=== PATIENT | female | born 1945 | race Caucasian/White ===

== ENCOUNTER 2017-08-09 18:12 | Inpatient (IN) | payer OTHER, MEDICARE ==
[~2017-08-09] VITALS: Ht 149.9 cm; Wt 95.0 kg
[2017-08-09 18:16] VITALS: BP 214/95; PULSE 87; RESP 18; TEMP 98.1; O2SAT 97
[2017-08-09] MEDS ORDERED: ALPR.5 PO (18:40)
[2017-08-09] MEDS ORDERED: OMEP20TA93 PO (18:40)
[2017-08-09] MEDS ORDERED: CLOB0.055 TOPICAL (18:40)
[2017-08-09] MEDS ORDERED: BUSP1TAB PO (18:40)
[2017-08-09] MEDS ORDERED: METF1000 PO (18:40)
[2017-08-09] MEDS ORDERED: AMLO5TAB2 PO (18:40)
[2017-08-09] MEDS ORDERED: ALLO300T2 PO (18:40)
[2017-08-09] MEDS ORDERED: HYDR-3799 PO (18:40)
[2017-08-09] MEDS ORDERED: PRAV20TA2 PO (18:40)
[2017-08-09] MEDS ORDERED: VALS1TAB65 PO (18:40)
[2017-08-09] MEDS ORDERED: PIOG30TA4 PO (18:40)
[2017-08-09] MEDS ORDERED: CARV3.12 PO (18:40)
[2017-08-09] MEDS ORDERED: GLIM4TAB PO (18:40)
[2017-08-09] MEDS ORDERED: TORS20TA PO (18:40)
[2017-08-09] MEDS ORDERED: CHOL5000 PO (18:41)
[2017-08-09] MEDS ORDERED: ASPI1TAB57 PO (18:41)
[2017-08-09] MEDS ORDERED: VITA10002 PO (18:41)
[2017-08-09 18:42] VITALS: BP 198/88; PULSE 84; RESP 19; O2SAT 94
[2017-08-09] MEDS ORDERED: cloNIDine HCL 0.2 MG TAB PO ONE (18:45)
[2017-08-09] MEDS ORDERED: FLUT1INH INH (18:46)
[2017-08-09 18:52] VITALS: BP 198/88; PULSE 82; RESP 19; O2SAT 96
--- NOTE | 2017-08-09 19:08 | PD ---
HPI Chief Complaint: Dizziness Time Seen by Provider: 18:29 Travel History International Travel<30 days: No Contact w/Intl Traveler<30days: No Traveled to known affect area: No History of Present Illness HPI 72-year-old female with a history of atrial fibrillation, hypertension, anxiety , diabetes mellitus, hyperlipidemia presents emergency department complaining of "dizzy spells", high blood pressure, and anxiety for approximately 2 months. States that she has also had episodes of "seeing things" out of her left eye. Patient describes a crescent-shaped black area that lasts for approximately 1 hour and then goes away on its own. At this time patient does have dizziness. Patient states that she has had 2 episodes today and she was concerned so she decided come to the emergency department today. Patient states she was evaluated by primary care physician, Dr. Mayfield, who ordered a carotid ultrasound to evaluate for possible carotid stenosis. She was also placed on alprazolam but this has stopped helping her. They occur when she is driving or performing daily activities. Patient denies chest pain, shortness of breath, abdominal pain, leg pain. States he also has bilateral 'cold sensation' to her anterior shins. PFSH Past Medical History Asthma: Yes Atrial Fibrillation: Yes Anxiety: Yes High Cholesterol: Yes COPD: Yes Coronary Artery Disease: Yes Diabetes: Yes Patient Takes Glucophage: Yes Hypertension: Yes Tetanus Vaccination: Unknown Influenza Vaccination: Yes Tubal Ligation: Yes Past Surgical History Appendectomy: Yes Social History Alcohol Use: No Tobacco Use: No Substance Use: No Allergies-Medications (Allergen,Severity, Reaction): Coded Allergies: hydrocodone (Verified Allergy, Unknown, 08/09/17) Reported Meds & Prescriptions Reported Meds & Active Scripts Active Reported Breo Ellipta Inh (Fluticasone/Vilanterol) 100-25 Mcg/Act Inh 1 Puff INH DAILY Use daily at the same time. Vitamin D3 (Cholecalciferol) 5,000 Unit Cap 5,000 Units PO DAILY Aspirin 81 (Aspirin) 81 Mg Tabdr 81 Mg PO DAILY Vitamin B-12 (Cyanocobalamin) 1,000 Mcg Tab 1,000 Mcg PO DAILY Xanax (Alprazolam) 0.5 Mg Tab 0.5 Mg PO Q8H PRN Buspirone (Buspirone HCl) 7.5 Mg Tab 7.5 Mg PO BID Valsartan 160 Mg Tab 160 Mg PO DAILY Torsemide 20 Mg Tab 20 Mg PO DAILY Pravastatin 20 Mg Tab 20 Mg PO DAILY Pioglitazone (Pioglitazone HCl) 30 Mg Tab 30 Mg PO DAILY Omeprazole 20 Mg Tab 20 Mg PO DAILY Metformin (Metformin HCl) 1,000 Mg Tab 1,000 Mg PO BIDPC Hydralazine HCl 25 Mg Tablet 25 Mg PO TID Glimepiride 4 Mg Tab 4 Mg PO BIDAC Clobetasol Topical (Clobetasol Propionate) 0.05% Cream 1 Applic TOPICAL BID Carvedilol 3.125 Mg Tab 3.125 Mg PO BID Amlodipine (Amlodipine Besylate) 5 Mg Tab 5 Mg PO DAILY Allopurinol 300 Mg Tab 300 Mg PO DAILY Review of Systems Except as stated in HPI: all other systems reviewed are Neg Physical Exam Narrative GENERAL: Well developed, well-nourished in no apparent distress, resting comfortably in bed SKIN: Focused skin assessment warm/dry. HEAD: Atraumatic. Normocephalic. EYES: Pupils equal and round. No scleral icterus. No injection or drainage. PERRLA. No obvious deficits with peripheral vision ENT: No nasal bleeding or discharge. Mucous membranes pink and moist. NECK: Trachea midline. No JVD. CARDIOVASCULAR: Regular rate and rhythm. No murmur appreciated. RESPIRATORY: No accessory muscle use. Clear to auscultation. Breath sounds equal bilaterally. GASTROINTESTINAL: Abdomen soft, non-tender, nondistended. Hepatic and splenic margins not palpable. MUSCULOSKELETAL: No obvious deformities. No clubbing. No cyanosis. No edema. NEUROLOGICAL: Awake and alert. No obvious cranial nerve deficits. Motor grossly within normal limits. Normal speech. PSYCHIATRIC: Appropriate mood and affect; insight and judgment normal. Data Data Last Documented VS Vital Signs Date Time Temp Pulse Resp B/P (MAP) Pulse Ox O2 Delivery O2 Flow Rate FiO2 08/09/17 19:41 73 16 172/74 (106) 95 Room Air 08/09/17 18:16 98.1 Orders Orders Electrocardiogram (08/09/17 18:44) Prothrombin Time / Inr (Pt) (08/09/17 18:44) Act Partial Throm Time (Ptt) (08/09/17 18:44) Complete Blood Count With Diff (08/09/17 18:44) Comprehensive Metabolic Panel (08/09/17 18:44) Troponin I (08/09/17 18:44) Urinalysis - C+S If Indicated (08/09/17 18:44) Ct Brain W/O Iv Contrast(Rout) (08/09/17 18:44) Chest, Single Ap (08/09/17 18:44) Ecg Monitoring (08/09/17 18:44) Iv Access Insert/Monitor (08/09/17 18:44) Oximetry (08/09/17 18:44) Blood Glucose (08/09/17 18:44) Clonidine (Catapres) (08/09/17 18:45) Clonidine (Catapres) (08/09/17 20:00) Admit Order (Ed Use Only) (08/09/17 20:36) Labs Laboratory Tests Test 08/09/17 18:55 White Blood Count 8.9 TH/MM3 Red Blood Count 4.48 MIL/MM3 Hemoglobin 12.9 GM/DL Hematocrit 39.0 % Mean Corpuscular Volume 87.1 FL Mean Corpuscular Hemoglobin 28.7 PG Mean Corpuscular Hemoglobin Concent 33.0 % Red Cell Distribution Width 16.5 % Platelet Count 273 TH/MM3 Mean Platelet Volume 10.6 FL Neutrophils (%) (Auto) 68.9 % Lymphocytes (%) (Auto) 19.9 % Monocytes (%) (Auto) 8.7 % Eosinophils (%) (Auto) 1.4 % Basophils (%) (Auto) 1.1 % Neutrophils # (Auto) 6.1 TH/MM3 Lymphocytes # (Auto) 1.8 TH/MM3 Monocytes # (Auto) 0.8 TH/MM3 Eosinophils # (Auto) 0.1 TH/MM3 Basophils # (Auto) 0.1 TH/MM3 CBC Comment DIFF FINAL Differential Comment Prothrombin Time 10.2 SEC Prothromb Time International Ratio 1.0 RATIO Activated Partial Thromboplast Time 26.3 SEC Blood Urea Nitrogen 25 MG/DL Creatinine 1.43 MG/DL Random Glucose 208 MG/DL Total Protein 7.8 GM/DL Albumin 3.8 GM/DL Calcium Level 9.5 MG/DL Alkaline Phosphatase 111 U/L Aspartate Amino Transf (AST/SGOT) 13 U/L Alanine Aminotransferase (ALT/SGPT) 17 U/L Total Bilirubin 0.2 MG/DL Sodium Level 140 MEQ/L Potassium Level 3.9 MEQ/L Chloride Level 105 MEQ/L Carbon Dioxide Level 27.1 MEQ/L Anion Gap 8 MEQ/L Estimat Glomerular Filtration Rate 36 ML/MIN Troponin I LESS THAN 0.02 NG/ML MDM Medical Decision Making Medical Screen Exam Complete: Yes Emergency Medical Condition: Yes Differential Diagnosis TIA, anxiety, migraine Narrative Course 72-year-old female with a history of atrial fibrillation, hypertension, anxiety , diabetes mellitus, hyperlipidemia presents emergency department complaining of "dizzy spells", high blood pressure, and anxiety for approximately 2 months. States that she has also had episodes of "seeing things" out of her left eye. Patient describes a crescent-shaped black area that lasts for approximately 1 hour and then goes away on its own. At this time patient does have dizziness. Patient states that she has had 2 episodes today and she was concerned so she decided come to the emergency department today. Patient states she was evaluated by primary care physician, Dr. Mayfield, who ordered a carotid ultrasound to evaluate for possible carotid stenosis. She was also placed on alprazolam but this has stopped helping her. They occur when she is driving or performing daily activities. Patient denies chest pain, shortness of breath, abdominal pain, leg pain. States he also has bilateral 'cold sensation' to her anterior shins. Vital signs initially 170/80, reduced to 164/73 after clonidine 0.1mg Physical exam revealed a well developed, well nourished 72y female mildly anxious. EOMI, no nystagmus, PERRLA. No peripheral visual deficits appreciated. No carotid bruits. No cranial nerve deficits. No obvious neuro deficits. I spoke with her primary care physician, Dr. Mayfield, who was able to characterize her symptoms as she described to him. She has apparently been evaluated in the ED previously for accelerated hypertension with associated dizziness but at that time, there was not a concern for TIA. Labs significant for random glucose at 208, BUN/Cr 25/1.43, negative cardiac enzymes, UA unconvincing of a UTI. Head CT reads no acute intracranial abnormality is identified. Chronic and age- appropriate findings: Mild generalized atrophy and mild chronic periventricular white matter changes. Because of her recurrent, persistent symptoms and uncontrolled HTN, I believe she would benefit from a TIA/CVA workup. Pt agreed to stay. Pt will be admitted for TIA/CVA work up. She remained stable in the ED today. Physician Communication Physician Communication I spoke with her primary care physician, Dr. 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
[2017-08-09 19:12] LABS: AUTOMATED NEUTROPHIL # 6.1 TH/MM3 (1.8-7.7); BASOPHIL # 0.1 TH/MM3 (0-0.2); BASOPHIL % 1.1 % (0.0-2.0); EOSINOPHIL # 0.1 TH/MM3 (0-0.4); EOSINOPHIL % 1.4 % (0.0-4.0); HEMOGLOBIN 12.9 GM/DL (11.6-15.3); LYMPH % 19.9 % (9.0-44.0); LYMPHOCYTE # 1.8 TH/MM3 (1.0-4.8); MEAN CELL VOLUME 87.1 FL (80.0-100.0); MEAN CORPUSCULAR HEMOGLOBIN 28.7 PG (27.0-34.0); MEAN PLATELET VOLUME 10.6 FL (7.0-11.0); MONO % 8.7 % (0.0-8.0); MONOCYTE # 0.8 TH/MM3 (0-0.9); NEUT % 68.9 % (16.0-70.0); PLATELET COUNT 273 TH/MM3 (150-450); RED BLOOD COUNT 4.48 MIL/MM3 (4.00-5.30); RED CELL DISTRIBUTION WIDTH 16.5 % (11.6-17.2); WHITE BLOOD COUNT 8.9 TH/MM3 (4.0-11.0)
--- NOTE | 2017-08-09 19:15 | RADRPT ---
EXAM DATE/TIME: 08/09/2017 18:54 [facility] COMPARISON: No previous studies available for comparison. INDICATIONS : Dizziness for 2 months. MEDICAL HISTORY : Chronic obstructive pulmonary disease. Diabetes mellitus type II. Hypertension. Asthma. Former Sm oker. SURGICAL HISTORY : None. ENCOUNTER: Initial ACUITY: 1 day PAIN SCORE: 0/10 LOCATION: Bilateral chest. FINDINGS: Portable AP view of the chest demonstrates a normal-sized cardiac silhouette. Lungs are underinflated with elevation of the left hemidiaphragm. There is atelectasis at the left lung base. No pleural eff usion or pneumothorax is identified. Bones and soft tissues demonstrate no acute finding. CONCLUSION: Underinflation with atelectasis at the left lung base. Otherwise, no acute cardiopulmonary abnormalit ies identified. Tyler Cleary MD on August 09, 2017 at 19:13 Board Certified Radiologist. This report was verified electronically.
--- NOTE | 2017-08-09 19:18 | RADRPT ---
EXAM DATE/TIME: 08/09/2017 19:01 [facility] COMPARISON: No previous studies available for comparison. INDICATIONS : Dizziness X 2months with elevated blood pressure. RADIATION DOSE: 38.46 CTDIvol (mGy) MEDICAL HISTORY : Hypertension. Diabetes mellitus type 2. SURGICAL HISTORY : None. ENCOUNTER: Initial ACUITY: 1 day PAIN SCALE: 6/10 LOCATION: cranial TECHNIQUE: Multiple contiguous axial images were obtained of the head. Using automated exposure control and adj ustment of the mA and/or kV according to patient size, radiation dose was kept as low as reasonably a chievable to obtain optimal diagnostic quality images. DICOM format image data is available electro nically for review and comparison. FINDINGS: CEREBRUM: There is mild generalized atrophy. Ventricles are normal. There is minimal periventricular white karlene er low attenuation. No evidence of midline shift, mass lesion, hemorrhage or acute infarction. No e xtra-axial fluid collections are seen. POSTERIOR FOSSA: The cerebellum and brainstem are intact. The 4th ventricle is midline. The cerebellopontine angle i s unremarkable. EXTRACRANIAL: Visualized sinuses are clear. SKULL: The calvaria is intact. No evidence of skull fracture. CONCLUSION: 1. No acute intracranial abnormality is identified. 2. Chronic and age-appropriate findings include mild generalized atrophy and mild chronic periventric ular white matter changes. Tyler Cleary MD on August 09, 2017 at 19:15 Board Certified Radiologist. This report was verified electronically.
[2017-08-09 19:30] LABS: ALBUMIN 3.8 GM/DL (3.4-5.0); AST (GOT) 13 U/L (15-37); BICARBONATE 27.1 MEQ/L (21.0-32.0); BLOOD UREA NITROGEN 25 MG/DL (7-18); CALCIUM 9.5 MG/DL (8.5-10.1); CHLORIDE 105 MEQ/L (98-107); CREATININE 1.43 MG/DL (0.50-1.00); GLOMERULAR FILTRATION RATE 36 ML/MIN (>89); GLUCOSE,RANDOM 208 MG/DL (74-106); SODIUM (NA) 140 MEQ/L (136-145)
[2017-08-09 19:31] LABS: ALT (GPT) 17 U/L (10-53); PROTHROMBIN TIME - PATIENT 10.2 SEC (9.8-11.6)
[2017-08-09 19:36] LABS: ALKALINE PHOSPHATASE 111 U/L (45-117); TOTAL BILIRUBIN ADULT 0.2 MG/DL (0.2-1.0); TOTAL PROTEIN 7.8 GM/DL (6.4-8.2); TROPONIN I LESS THAN 0.02 NG/ML (0.02-0.05)
[2017-08-09 19:41] VITALS: BP 172/74; PULSE 73; RESP 16; O2SAT 95
[2017-08-09] MEDS ORDERED: cloNIDine HCL 0.1 MG TAB PO ONE (20:00)
[2017-08-09 21:13] LABS: BACTERIA, URINE RARE /hpf; BILIRUBIN, URINE NEG (NEG); BLOOD, URINE NEG (NEG); GLUCOSE,URINE NEG (NEG); KETONE, URINE NEG (NEG); MUCUS URINE FEW /lpf (OCC); NITRITE,URINE NEG (NEG); SQUAMOUS EPITHELIAL CELL URINE 3 /hpf (0-5); URINE COLOR YELLOW (YELLW/STRAW); URINE LEUKOCYTE ESTERASE TRACE (NEG)
[2017-08-09] MEDS ORDERED: DEXTROSE 50% IN WATER 50 ML VIAL(D50) IV PUSH PRN (21:30)
[2017-08-09] MEDS ORDERED: PILL SPLITTER OTHER PRN (21:30)
[2017-08-09] MEDS ORDERED: GLUCAGON 1 MG/ML VIAL OTHER PRN (21:30)
[2017-08-09] MEDS ORDERED: SODIUM CHLORIDE 0.9% FLUSH 10 ML FLUSH IV FLUSH PRN (21:30)
--- NOTE | 2017-08-09 21:44 | HHI.HP ---
[facility] Unknown Admission Diagnosis [place], dizzy, BARLOW, r/o TIA/CVA Diagnoses: Travel History International Travel<30 Days: No Contact w/Intl Traveler <30 Da: No Traveled to Known Affected Are: No History of Present Illness 72-year-old female with a past medical history significant for atrial fibrillation anticoagulated on aspirin, diabetes mellitus, hypertension, hyperlipidemia, CHF (no recent echo for comparison), DENIZ and COPD presents to the emergency department with multiple episodes of dizziness/lightheadedness. The patient reports that she has these episodes several times a week and was previously being treated for anxiety. She reports that she feels lightheaded and has heart palpitations with accompanying visual disturbances. She reports the disturbances are floaters in her left eye. She denies any loss of vision. Review of Systems Except as stated in HPI: all other systems reviewed are Neg Denies fever or chills Denies blurry vision, otorrhea, rhinorrhea Denies sore throat and cough No chest pain, palpitations No shortness of breath or wheezing No abdominal pain Denies constipation/diarrhea/nausea/vomiting Denies muscle pain Denies focal weakness No rashes Past Family Social History Past Medical History History of atrial fibrillation anticoagulated on aspirin Diabetes mellitus Hypertension Hyperlipidemia CHF DENIZ COPD Allergies: Coded Allergies: hydrocodone (Verified Allergy, Unknown, 08/09/17) Physical Exam Vital Signs Vital Signs Date Time Temp Pulse Resp B/P (MAP) Pulse Ox O2 Delivery O2 Flow Rate FiO2 08/09/17 19:41 73 16 172/74 (106) 95 Room Air 08/09/17 18:52 82 19 198/88 (124) 96 Room Air 08/09/17 18:42 82 19 96 Room Air 08/09/17 18:42 84 19 198/88 (124) 94 Room Air 08/09/17 18:16 98.1 87 18 214/95 (134) 97 Physical Exam GENERAL: Obese, female lying in bed SKIN: No rashes, ecchymoses or lesions. Cool and dry. HEAD: Atraumatic. Normocephalic. No temporal or scalp tenderness. EYES: Pupils equal round and reactive. Extraocular motions intact. No scleral icterus. No injection or drainage. ENT: Nose without bleeding, purulent drainage or septal hematoma. Throat without erythema, tonsillar hypertrophy or exudate. Uvula midline. Airway patent. NECK: Trachea midline. No JVD or lymphadenopathy. Supple, nontender, no meningeal signs. CARDIOVASCULAR: Regular rate and rhythm without murmurs, gallops, or rubs. RESPIRATORY: Clear to auscultation. Breath sounds equal bilaterally. No wheezes , rales, or rhonchi. GASTROINTESTINAL: Abdomen soft, non-tender, nondistended. No hepato-splenomegaly , or palpable masses. No guarding. MUSCULOSKELETAL: 2+ edema bilaterally. No calf tenderness. NEUROLOGICAL: Awake and alert. Cranial nerves II through XII intact. Motor and sensory grossly within normal limits. Five out of 5 muscle strength in all muscle groups. Normal speech. Laboratory Laboratory Tests Test 08/09/17 18:55 08/09/17 20:50 White Blood Count 8.9 Red Blood Count 4.48 Hemoglobin 12.9 Hematocrit 39.0 Mean Corpuscular Volume 87.1 Mean Corpuscular Hemoglobin 28.7 Mean Corpuscular Hemoglobin Concent 33.0 Red Cell Distribution Width 16.5 Platelet Count 273 Mean Platelet Volume 10.6 Neutrophils (%) (Auto) 68.9 Lymphocytes (%) (Auto) 19.9 Monocytes (%) (Auto) 8.7 Eosinophils (%) (Auto) 1.4 Basophils (%) (Auto) 1.1 Neutrophils # (Auto) 6.1 Lymphocytes # (Auto) 1.8 Monocytes # (Auto) 0.8 Eosinophils # (Auto) 0.1 Basophils # (Auto) 0.1 CBC Comment DIFF FINAL Differential Comment Prothrombin Time 10.2 Prothromb Time International Ratio 1.0 Activated Partial Thromboplast Time 26.3 Blood Urea Nitrogen 25 Creatinine 1.43 Random Glucose 208 Total Protein 7.8 Albumin 3.8 Calcium Level 9.5 Alkaline Phosphatase 111 Aspartate Amino Transf (AST/SGOT) 13 Alanine Aminotransferase (ALT/SGPT) 17 Total Bilirubin 0.2 Sodium Level 140 Potassium Level 3.9 Chloride Level 105 Carbon Dioxide Level 27.1 Anion Gap 8 Estimat Glomerular Filtration Rate 36 Troponin I LESS THAN 0.02 Urine Color YELLOW Urine Turbidity CLEAR Urine pH 5.0 Urine Specific [place] 1.015 Urine Protein 30 Urine Glucose (UA) NEG Urine Ketones NEG Urine Occult Blood NEG Urine Nitrite NEG Urine Bilirubin NEG Urine Urobilinogen LESS THAN 2.0 Urine Leukocyte Esterase TRACE Urine WBC 2 Urine Squamous Epithelial Cells 3 Urine Bacteria RARE Urine Mucus FEW Microscopic Urinalysis Comment CATH-CULTURE IND Date/Time Source Procedure Growth Status 08/09/17 20:50 Urine Catheterized Urine Urine Culture Pending Received Result Diagram: 08/09/[id number]/09/171854 Caprini VTE Risk Assessment Caprini VTE Risk Assessment: Mod/High Risk (score >= 2) Caprini Risk Assessment Model Point Value = 1 Point Value = 2 Point Value = 3 Point Value = 5 Age 41-60 Minor surgery BMI > 25 kg/m2 Swollen legs Varicose veins or History of unexplained or recurrent spontaneous Oral contraceptives or hormone replacement Sepsis (< 1 month) Serious lung disease, including pneumonia (< 1 month) Abnormal pulmonary function Acute myocardial infarction Congestive heart failure (< 1 month) History of inflammatory bowel disease Medical patient at bed rest Age 61-74 Arthroscopic surgery Major open surgery (> 45 min) Laparoscopic surgery (> 45 min) Malignancy Confined to bed (> 72 hours) Immobilizing plaster cast Central venous access Age >= 75 History of VTE Family history of VTE Factor V Leiden Prothrombin [id number] Lupus anticoagulant Anticardiolipin antibodies Elevated serum homocysteine Heparin-induced thrombocytopenia Other congenital or acquired thrombophilia Stroke (< 1 month) Elective arthroplasty Hip, pelvis, or leg fracture Acute spinal cord injury (< 1 month) Prophylaxis Regimen Total Risk Factor Score Risk Level Prophylaxis Regimen 0-1 Low Early ambulation 2 Moderate Order ONE of the following: *Sequential Compression Device (SCD) *Heparin 5000 units SQ BID 3-4 Higher Order ONE of the following medications: *Heparin 5000 units SQ TID *Enoxaparin/Lovenox 40 mg SQ daily (WT < 150 kg, CrCl > 30 mL/min) *Enoxaparin/Lovenox 30 mg SQ daily (WT < 150 kg, CrCl > 10-29 mL/min) *Enoxaparin/Lovenox 30 mg SQ BID (WT < 150 kg, CrCl > 30 mL/min) AND/OR *Sequential Compression Device (SCD) 5 or more Highest Order ONE of the following medications: *Heparin 5000 units SQ TID (Preferred with Epidurals) *Enoxaparin/Lovenox 40 mg SQ daily (WT < 150 kg, CrCl > 30 mL/min) *Enoxaparin/Lovenox 30 mg SQ daily (WT < 150 kg, CrCl > 10-29 mL/min) *Enoxaparin/Lovenox 30 mg SQ BID (WT < 150 kg, CrCl > 30 mL/min) AND *Sequential Compression Device (SCD) Assessment and Plan Assessment and Plan Assessment/plan: 1. Concern for TIA/visual disturbances/dizziness/lightheadedness CT head with no acute abnormality MRI, MRA brain and carotid ultrasound pending Neurology consulted, appreciate recommendations PT/OT 2. Diabetes mellitus Sliding scale insulin Monitor blood glucose 3. CHF/hypertension/hyperlipidemia Continue home medications 4. COPD/DENIZ Continue home medications Home CPAP 5. History of atrial fibrillation Patient currently in normal sinus rhythm, anticoagulated with aspirin Monitor 6. CLAUDE Creatinine 1.43, no baseline for comparison Likely chronic component IV fluid hydration Monitor renal function FEN Nothing by mouth Electrolytes: Monitor and replete when necessary NS at 70 cc/hour Heparin Physician Certification 2 Midnight Certification Type: Admission for Inpatient Services Order for Inpatient Services The services are ordered in accordance with Medicare regulations or non- Medicare payer requirements, as applicable. In the case of services not specified as inpatient-only, they are appropriately provided as inpatient services in accordance with the 2-midnight benchmark. Estimated LOS (days): 2 2 days is the estimated time the patient will need to remain in the hospital, assuming treatment plan goals are met and no additional complications. Post-Hospital Plan: Not yet determined Gricelda Tobin MD Aug 09, 2017 21:44
[2017-08-09] MEDS ORDERED: ALPRAZolam 0.5 MG TAB PO PRN (22:00)
[2017-08-09] MEDS: HEPARIN SODIUM - SQ 10,000 UNITS/ML VIAL SQ SCH (22:31)
[2017-08-09] MEDS: SODIUM CHLOR 0.9% 1000 ML INJ 1,000 ML IV SCH (22:32)
[2017-08-09 22:35] VITALS: BP 165/68; PULSE 71; RESP 16; O2SAT 93
--- NOTE | 2017-08-09 23:02 | RADRPT ---
EXAM DATE/TIME: 08/09/2017 21:54 [facility] COMPARISON: No previous studies available for comparison. INDICATIONS : Cerebrovascular accident. MEDICAL HISTORY : Hypercholesterolemia. Hypertension. Coronary artery disease. COPD. Asthma. Diabetes. Anxiety. SURGICAL HISTORY : Appendectomy. Tubal ligation. ENCOUNTER: Initial ACUITY: 1 month PAIN SCORE: 0/10 LOCATION: Bilateral neck PEAK SYSTOLIC VELOCITIES (cm/sec): ICA/CCA RATIO: Right: 1.4 Left: 1.0 ICA: Right: 146 Left: 92 CCA: Right: 108 Left: 95 ECA: Right: 123 Left: 113 VERTEBRAL: Right: 40 antegrade Left: 55 antegrade Elevated flow velocities and ICA/CCA ratios have been found to correlate with increased degrees of vessel stenosis, calculated as percentage of diameter relative to a normal segment of distal ICA/CCA FINDINGS: RIGHT CAROTID: No significant stenosis is visualized. Mild calcific plaque is present. The waveforms are within nor mal limits. LEFT CAROTID: No significant stenosis is visualized. Mild calcific plaque is present. The waveforms are within norm al limits. VERTEBRAL ARTERIES: Antegrade flow is seen in both vertebral arteries. MISCELLANEOUS: None. CONCLUSION: Mild calcific plaquing with no significant stenosis. Brice Jay MD on August 09, 2017 at 22:59 Board Certified Radiologist. This report was verified electronically.
[2017-08-09 23:16] VITALS: BP 156/70; PULSE 70; RESP 18; TEMP 97.8; O2SAT 96
[2017-08-10] VITALS (7 sets, daily range): BP systolic 144–168; BP diastolic 65–81; PULSE 61–74; RESP 17–19; TEMP 97.4–98.2; O2SAT 95–98
[2017-08-10] MEDS: HEPARIN SODIUM - SQ 10,000 UNITS/ML VIAL SQ SCH ×3 (07:37→21:15)
[2017-08-10] MEDS: INSULIN ASPART SUPPLEMENTAL SCALE SQ SCH ×4 (08:00→21:27)
[2017-08-10] MEDS: SODIUM CHLORIDE 0.9% FLUSH 10 ML FLUSH IV FLUSH SCH ×2 (09:00→21:16)
[2017-08-10] MEDS ORDERED: PNEUMOCOCCAL POLYVALENT INJ 25 MCG/0.5 ML SYR IM ONE (10:00)
--- NOTE | 2017-08-10 10:02 | MB ---
cc: ROSEY VERA M.D. DATE OF CONSULTATION: 08/10/2017 HISTORY OF PRESENT ILLNESS She is a 72-year-old woman seen in neurological consultation in regards to dizziness, lightheadedness. She is having dizziness for several months. Yesterday she had a couple of spells which were more severe. As outpatient she was diagnosed with possible anxiety and given Xanax with some partial relief of symptoms. In one occasion she also had some visual phenomenon on the left side but there was no headache. She does not have much of migraine symptoms. PAST MEDICAL HISTORY She has history of: 1. Atrial fibrillation on aspirin. 2. Diabetes. 3. Hypertension. 4. Hyperlipidemia. 5. CHF. NEUROLOGIC EXAMINATION On exam she was alert, pleasant, oriented, mildly anxious. She is moderately overweight. Ocular movements and visual saucedo full. She has good strength on the bedside exam. She was sitting in bed. [id number] testing normal. Reflexes 1-2+ throughout and plantar response is flexor. Speech and language all normal. LABORATORY DATA The sodium, potassium are normal. BUN 25, creatinine 1.43, glucose 208. CBC is normal. IMAGING STUDIES The CT brain showed no acute abnormality, microvascular disease. The carotid ultrasound showed mild disease bilaterally. ASSESSMENT Recurrent dizziness, lightheadedness, undetermined cause. Spoke to the daughter who is a nurse in rehab. There has been some slight disorientation after the spell that may last an hour or more. I do not think this is seizures. Nonetheless, I will check an EEG. I will request an MRI brain, MRA head and neck. There is a history of atrial fibrillation, though these spells do not really suggest a TIA. Depending upon medical workup, consider anticoagulation as well. I do not think there is really obvious cognitive decline, though the daughter admits the patient is perhaps a little bit forgetful. She is 72 and she is functioning well independently, driving, etc. Possibility of panic attacks is certainly a consideration as well. Thank you for asking us to assist in her care. Rosey Vera MD [facility]/TLL /9:36 AM /9:47 AM
[2017-08-10] MEDS: PANTOPRAZOLE SOD 20 MG DELAYED RELEASE TAB PO SCH (10:17)
[2017-08-10] MEDS: hydrALAZINE HCL 25 MG TAB PO SCH ×3 (10:17→17:45)
[2017-08-10] MEDS: ASPIRIN 325 MG TAB PO SCH (10:17)
[2017-08-10] MEDS: amLODIPine BESYLATE 5 MG TAB PO SCH (10:18)
[2017-08-10] MEDS: busPIRone HCL 5 MG TAB PO SCH ×2 (10:18→21:15)
[2017-08-10] MEDS: VALSARTAN 160 MG TAB PO SCH (10:18)
[2017-08-10] MEDS: CARVEDILOL 3.125 MG TAB PO SCH ×2 (10:18→21:15)
[2017-08-10] MEDS: TORSEMIDE 20 MG TAB PO SCH (10:19)
[2017-08-10] MEDS: PRAVASTATIN SOD 20 MG TAB PO SCH (10:20)
[2017-08-10 10:29] LABS: AUTOMATED NEUTROPHIL # 5.5 TH/MM3 (1.8-7.7); BASOPHIL # 0.1 TH/MM3 (0-0.2); EOSINOPHIL # 0.1 TH/MM3 (0-0.4); EOSINOPHIL % 1.8 % (0.0-4.0); HEMATOCRIT 37.5 % (35.0-46.0); HEMOGLOBIN 12.3 GM/DL (11.6-15.3); LYMPH % 18.8 % (9.0-44.0); LYMPHOCYTE # 1.5 TH/MM3 (1.0-4.8); MEAN CELL VOLUME 87.7 FL (80.0-100.0); MEAN CORPUSCULAR HEMOGLOBIN 28.8 PG (27.0-34.0); MEAN CORPUSCULAR HGB CONC 32.9 % (32.0-36.0); MEAN PLATELET VOLUME 10.8 FL (7.0-11.0); MONO % 7.7 % (0.0-8.0); MONOCYTE # 0.6 TH/MM3 (0-0.9); NEUT % 70.7 % (16.0-70.0); PLATELET COUNT 243 TH/MM3 (150-450); RED BLOOD COUNT 4.28 MIL/MM3 (4.00-5.30); RED CELL DISTRIBUTION WIDTH 16.8 % (11.6-17.2); WHITE BLOOD COUNT 7.7 TH/MM3 (4.0-11.0)
[2017-08-10 10:50] LABS: BICARBONATE 28.7 MEQ/L (21.0-32.0); BLOOD UREA NITROGEN 19 MG/DL (7-18); CALCIUM 9.4 MG/DL (8.5-10.1); CHLORIDE 104 MEQ/L (98-107); CHOLESTEROL 171 MG/DL (120-200); CREATININE 0.96 MG/DL (0.50-1.00); GLOMERULAR FILTRATION RATE 57 ML/MIN (>89); GLUCOSE,RANDOM 149 MG/DL (74-106); SODIUM (NA) 140 MEQ/L (136-145); TRIGLYCERIDES 187 MG/DL (42-150)
[2017-08-10 10:55] LABS: CHOLESTEROL/ HDL RATIO 3.38 RATIO; HDL CHOLESTEROL 50.5 MG/DL (40.0-60.0); LDL CHOLESTEROL 83 MG/DL (0-99)
--- NOTE | 2017-08-10 11:37 | HHI.PR ---
Subjective Remarks Follow-up dizziness. Patient is feeling better today. Discussed with her daughter who is a nurse. Discussed with physical therapy, noted desaturation during activity history of COPD and sleep apnea was not able to use CPAP last night. Objective Vitals Vital Signs Date Time Temp Pulse Resp B/P (MAP) Pulse Ox O2 Delivery O2 Flow Rate FiO2 08/10/17 05:14 Nasal Cannula 2.00 08/10/17 04:33 97.9 61 17 144/65 (91) 95 08/10/17 03:10 72 08/09/17 23:16 97.8 70 18 156/70 (98) 96 08/09/17 22:36 97 Nasal Cannula 2.00 08/09/17 22:35 71 16 165/68 (100) 93 Room Air 08/09/17 19:41 73 16 172/74 (106) 95 Room Air 08/09/17 18:52 82 19 198/88 (124) 96 Room Air 08/09/17 18:42 82 19 96 Room Air 08/09/17 18:42 84 19 198/88 (124) 94 Room Air 08/09/17 18:16 98.1 87 18 214/95 (134) 97 Result Diagram: 08/10/17 0854 08/10/17 0854 Imaging Last Impressions Neck Magnetic Resonance Angiography 08/10/17 0000 Signed Impressions: Service Date/Time: Thursday, August 10, 2017 11:13 - CONCLUSION: 1. Mild eccentric plaque at the right carotid bifurcation without significant stenosis. Left carotid system unremarkable. Vertebral arteries are patent bilaterally. Bjorn Carballo MD Head Magnetic Resonance Angiography 08/10/17 0000 Signed Impressions: Service Date/Time: Thursday, August 10, 2017 11:13 - CONCLUSION: Normal examination. Stef Hines Jr., MD Brain MRI 08/10/17 0000 Signed Impressions: Service Date/Time: Thursday, August 10, 2017 11:13 - CONCLUSION: 1. No acute intracranial abnormality. 2. Atrophy and chronic small vessel ischemic change. Stef Hines Jr., MD Head CT 08/09/17 1844 Signed Impressions: Service Date/Time: Wednesday, August 09, 2017 19:01 - CONCLUSION: 1. No acute intracranial abnormality is identified. 2. Chronic and age-appropriate findings include mild generalized atrophy and mild chronic periventricular white matter changes. Tyler Cleary MD Chest X-Ray 2/18/18 1844 Signed Impressions: Service Date/Time: Wednesday, August 09, 2017 18:54 - CONCLUSION: Underinflation with atelectasis at the left lung base. Otherwise, no acute cardiopulmonary abnormalities identified. Tyler Cleary MD Carotid Artery Ultrasound 08/09/17 0000 Signed Impressions: Service Date/Time: Wednesday, August 09, 2017 21:54 - CONCLUSION: Mild calcific plaquing with no significant stenosis. Brice Jay MD Objective Remarks GENERAL: Obese, female lying in bed SKIN: No rashes, ecchymoses or lesions. Cool and dry. CARDIOVASCULAR: Regular rate and rhythm without murmurs, gallops, or rubs. RESPIRATORY: Clear to auscultation. Breath sounds equal bilaterally. No wheezes , rales, or rhonchi. GASTROINTESTINAL: Abdomen soft, non-tender, nondistended. No guarding. MUSCULOSKELETAL: 2+ edema bilaterally. No calf tenderness. NEUROLOGICAL: Awake and alert. Cranial nerves II through XII intact. Motor and sensory grossly within normal limits. Five out of 5 muscle strength in all muscle groups. Normal speech. Procedures none A/P Problem List: (1) Visual changes ICD Code: H53.9 - Unspecified visual disturbance Status: Acute (2) Scotoma ICD Code: H53.419 - Scotoma involving central area, unspecified eye Status: Acute (3) COPD (chronic obstructive pulmonary disease) ICD Code: J44.9 - Chronic obstructive pulmonary disease, unspecified Assessment and Plan 1. Concern for TIA vs sz 2/2 visual disturbances/dizziness/lightheadedness CT head with no acute abnormality MRI, MRA brain and carotid ultrasound unremarkable. Continue antiplatelets and statin Neurology consulted, appreciate recommendations. Patient has abnormal EEG. Seizure precautions. May need a ED PT/OT 2. Diabetes mellitus Sliding scale insulin Monitor blood glucose 3. CHF/hypertension/hyperlipidemia Continue home medications 4. COPD/DENIZ Continue home medications Home CPAP Patient with borderline hypoxia. Oxygen walk test 5. History of atrial fibrillation Patient currently in normal sinus rhythm, anticoagulated with aspirin Monitor 6. CLAUDE Creatinine 1.43, no baseline for comparison Likely chronic component Improving with IV fluid hydration Monitor renal function FEN Regular diet Electrolytes: Monitor and replete when necessary Discontinue IV hydration Heparin Discharge Planning PT does not recommend [facility] Problem Qualifiers (1) Scotoma: Qualified Codes: H53.412 - Scotoma involving central area, left eye Otilio Irizarry MD Aug 10, 2017 11:37
[2017-08-10] MEDS: SODIUM CHLOR 0.9% 1000 ML INJ 1,000 ML IV SCH (11:48)
--- NOTE | 2017-08-10 11:54 | RADRPT ---
EXAM DATE/TIME: 08/10/2017 11:13 [facility] COMPARISON: MRI BRAIN W/O CONTRAST, August 10, 2017, 11:13. INDICATIONS : Stroke. MEDICAL HISTORY : Cardiovascular disease Chronic obstructive pulmonary disease. Congestive heart failure. AFIB, HTN, Di abetes SURGICAL HISTORY : Tubal ligation. Appendectomy. ENCOUNTER: Initial ACUITY: 1 day PAIN SCORE: 3/10 LOCATION: Bilateral cranial Please note a normal MRA of the brain does not entirely exclude the possibility of a small aneurysm, nor the possibility of distal intracranial vessel disease. TECHNIQUE: 3D time of flight MRA was performed. Source images, multiplanar STS MIP, and 3D volume MIP reconstru ctions were reviewed. FINDINGS: There is excellent visualization of the major intracranial arteries out to the second-order branch ve ssels. There is no evidence for aneurysm, vessel truncation or stenosis, and no evidence for vascula r malformation. CONCLUSION: Normal examination. Stef Hines Jr., MD on August 10, 2017 at 11:50 Board Certified Radiologist. This report was verified electronically.
[2017-08-10] MEDS: FLUTICASONE 100 MCG/VILANTEROL 25 MCG INHALER INH SCH (11:55)
--- NOTE | 2017-08-10 11:57 | RADRPT ---
EXAM DATE/TIME: 08/10/2017 11:13 [facility] COMPARISON: CT BRAIN W/O CONTRAST, August 09, 2017, 19:01. INDICATIONS : Dizziness. MEDICAL HISTORY : Hypertension. Chronic obstructive pulmonary disease. Cardiovascular disease. AFIB, Diabetes, CHF. SURGICAL HISTORY : Tubal ligation. Appendectomy. ENCOUNTER: Initial ACUITY: 1 day PAIN SCORE: 3/10 LOCATION: Bilateral cranial TECHNIQUE: Multiplanar, multisequence MRI of the brain was performed without contrast. FINDINGS: CEREBRUM: Atrophy. The ventricles are normal for age. No evidence of midline shift, mass lesion, hemorrhage or acute infarction. No extraaxial fluid collections are seen. The pituitary gland and suprasellar ci astudillo are normal in configuration. WHITE MATTER: Periventricular foci of high flair signal abnormality involving both cerebral hemispheres. Centralize d pontine involvement also noted. POSTERIOR FOSSA: The cerebellum and brainstem are intact. The 4th ventricle is midline. The cerebellopontine angle is unremarkable. The cerebellar tonsils are normal in position. DIFFUSION IMAGING: No focal areas of restricted diffusion are seen. No evidence of acute infarction. EXTRACRANIAL: The visualized portions of the orbits and paranasal sinuses are unremarkable. CONCLUSION: 1. No acute intracranial abnormality. 2. Atrophy and chronic small vessel ischemic change. Stef Hines Jr., MD on August 10, 2017 at 11:52 Board Certified Radiologist. This report was verified electronically.
[2017-08-10] MEDS ORDERED: GADOBENATE DIM PF 529 MG/ML 20ML VIAL (for RAD MRI) IV ONE (12:24)
--- NOTE | 2017-08-10 12:24 | RADRPT ---
EXAM DATE/TIME: 08/10/2017 11:13 [facility] COMPARISON: No previous studies available for comparison. INDICATIONS : Dizziness. Change in vision. CONTRAST: 20 cc Multihance (gadobenate) IV MEDICAL HISTORY : Hypertension. Cardiovascular disease Congestive heart failure. Diabetes, AFIB, COPD. SURGICAL HISTORY : Tubal ligation. Arthroscopy. ENCOUNTER: Initial ACUITY: 1 day PAIN SCORE: 2/10 LOCATION: Bilateral cranial Percent stenosis is calculated using the diameter of the stenotic region over the diameter of the nor mal distal internal carotid artery. TECHNIQUE: Bolus infused MRA of the extracranial circulation was performed using a neurovascular coil. Post pro cessing was performed including rotating subvolume maximum intensity projections of each carotid dalia ry, rotating full volume maximum intensity projections of both carotid arteries, sagittal and coronal sliding thin slab reformations of each carotid artery, and left oblique sliding thin slab reformatio n through the aortic arch to include the origin of the arch branch vessels. FINDINGS: AORTIC ARCH: There is a three vessel origin of the great vessels from the aorta. No evidence of ostial narrowing. RIGHT CAROTID: The common carotid artery is intact. There is some mild eccentric plaque at the carotid bifurcation w ithout hemodynamically significant stenosis. The internal carotid artery lumen is smooth without sten osis. The external carotid artery is intact. LEFT CAROTID: The common carotid artery is intact. The carotid bulb has a normal configuration without ulceration or narrowing. The internal carotid artery lumen is smooth without stenosis. The external carotid ar roscoe is intact. VERTEBRALS: The vertebral arteries have a symmetric diameter. No stenotic lesions are seen. CONCLUSION: 1. Mild eccentric plaque at the right carotid bifurcation without significant stenosis. Left carotid system unremarkable. Vertebral arteries are patent bilaterally. Bjorn Carballo MD on August 10, 2017 at 12:16 Board Certified Radiologist. This report was verified electronically.
--- NOTE | 2017-08-10 15:54 | MG ---
cc: ROSEY KIM M.D. Lab No: Date: 08/10/2017 Age: 72 Sex: F An EEG was obtained on this 72-year-old patient being evaluated for possible seizures. The patient is described as awake. DESCRIPTION The EEG shows alpha activity with some low and mid amplitude beta rhythms. There are some small sharp waves/discharges bilaterally. At times there is some intermittent milder slower activity on the left compared to the right hemisphere. The background is reactive. The patient is awake and drowsy. Photic stimulation shows some bilateral driving response. INTERPRETATION Very minimally abnormal EEG because of some mild asymmetry and small sharp waves/discharges of undetermined significance. The findings need to be correlated clinically. Small sharp discharges sometimes can be associated with an epileptiform abnormality. Rosey Kim MD OFC/BT /3:37 PM /3:47 PM
[2017-08-10] MEDS ORDERED: ALPR.25 PO (16:49)
[2017-08-10 17:11] LABS: HEMOGLOBIN A1C 6.2 % (4.3-6.0)
[2017-08-10] MEDS: ALPRAZolam 0.25 MG TAB PO PRN (21:16)
--- NOTE | 2017-08-10 23:03 | EKG ---
Date Performed: 08/09/2017 Time Performed: 18:34:19 PTAGE: 72 years EKG: Sinus rhythm MODERATE ST DEPRESSION ABNORMAL ECG NO PREVIOUS TRACING DOCTOR: Parag Ramos Interpretating Date/Time 08/10/2017 22:55:36
[2017-08-11] VITALS (8 sets, daily range): BP systolic 146–170; BP diastolic 64–80; PULSE 62–79; RESP 16–20; TEMP 97.7–98.6; O2SAT 94–98
[2017-08-11] MEDS: SODIUM CHLOR 0.9% 1000 ML INJ 1,000 ML IV SCH (02:06)
[2017-08-11] MEDS: HEPARIN SODIUM - SQ 10,000 UNITS/ML VIAL SQ SCH ×3 (07:21→20:32)
[2017-08-11] MEDS: INSULIN ASPART SUPPLEMENTAL SCALE SQ SCH ×4 (08:00→22:40)
[2017-08-11] MEDS: PRAVASTATIN SOD 20 MG TAB PO SCH (08:55)
[2017-08-11] MEDS: CARVEDILOL 3.125 MG TAB PO SCH ×2 (08:56→20:32)
[2017-08-11] MEDS: TORSEMIDE 20 MG TAB PO SCH (08:56)
[2017-08-11] MEDS: amLODIPine BESYLATE 5 MG TAB PO SCH (08:56)
[2017-08-11] MEDS: PANTOPRAZOLE SOD 20 MG DELAYED RELEASE TAB PO SCH (08:56)
[2017-08-11] MEDS: hydrALAZINE HCL 25 MG TAB PO SCH (08:56)
[2017-08-11] MEDS: busPIRone HCL 5 MG TAB PO SCH ×2 (08:57→20:32)
[2017-08-11] MEDS: ASPIRIN 325 MG TAB PO SCH (08:57)
[2017-08-11] MEDS: VALSARTAN 160 MG TAB PO SCH (08:57)
[2017-08-11] MEDS: SODIUM CHLORIDE 0.9% FLUSH 10 ML FLUSH IV FLUSH SCH ×2 (09:00→20:32)
[2017-08-11] MEDS: FLUTICASONE 100 MCG/VILANTEROL 25 MCG INHALER INH SCH (09:00)
[2017-08-11] MEDS ORDERED: hydrALAZINE HCL 25 MG TAB PO ONE (09:45)
[2017-08-11] MEDS ORDERED: OXYGENDME NAS.CANULA (10:30)
[2017-08-11] MEDS: ALLOPURINOL 300 MG TAB PO SCH (10:51)
--- NOTE | 2017-08-11 13:28 | HHI.PR ---
Subjective Remarks Follow-up dizziness. Improving symptoms patient's presents with intermittent dizziness, pressure sensation in her head and scotomas. Tele with NSVT 18 beats no sxs dw RN Objective Vitals Vital Signs Date Time Temp Pulse Resp B/P (MAP) Pulse Ox O2 Delivery O2 Flow Rate FiO2 08/11/17 09:39 2.00 08/11/17 08:00 165/78 (107) 08/11/17 08:00 161/77 (105) 08/11/17 08:00 98.0 64 17 170/80 (110) 96 08/11/17 07:45 Nasal Cannula 2.00 08/11/17 06:32 Nasal Cannula 1.00 08/11/17 04:15 98.0 62 19 146/66 (92) 97 08/11/17 01:03 Nasal Cannula 1.00 08/11/17 00:20 98.6 67 20 150/75 (100) 96 08/10/17 23:08 Nasal Cannula 1.00 08/10/17 20:50 97.6 74 19 164/73 (103) 97 08/10/17 20:30 73 08/10/17 16:44 97.6 65 18 168/74 (105) 98 I/O 08/10/17 08/10/17 08/10/17 08/11/17 08/11/17 08/11/17 07:00 15:00 23:00 07:00 15:00 23:00 Intake Total 800 ml 1200 ml Balance 800 ml 1200 ml Intake Oral 800 ml 1200 ml # Voids 2 3 1 # Bowel Movements 0 0 Result Diagram: 08/10/17 0854 08/10/17 0854 Imaging Last Impressions Neck Magnetic Resonance Angiography 08/10/17 0000 Signed Impressions: Service Date/Time: Thursday, August 10, 2017 11:13 - CONCLUSION: 1. Mild eccentric plaque at the right carotid bifurcation without significant stenosis. Left carotid system unremarkable. Vertebral arteries are patent bilaterally. Bjorn Carballo MD Head Magnetic Resonance Angiography 08/10/17 0000 Signed Impressions: Service Date/Time: Thursday, August 10, 2017 11:13 - CONCLUSION: Normal examination. Stef Hines Jr., MD Brain MRI 08/10/17 0000 Signed Impressions: Service Date/Time: Thursday, August 10, 2017 11:13 - CONCLUSION: 1. No acute intracranial abnormality. 2. Atrophy and chronic small vessel ischemic change. Stef Hines Jr., MD Head CT [id number] Signed Impressions: Service Date/Time: Wednesday, August 09, 2017 19:01 - CONCLUSION: 1. No acute intracranial abnormality is identified. 2. Chronic and age-appropriate findings include mild generalized atrophy and mild chronic periventricular white matter changes. Tyler Cleary MD Chest X-Ray [id number] Signed Impressions: Service Date/Time: Wednesday, August 09, 2017 18:54 - CONCLUSION: Underinflation with atelectasis at the left lung base. Otherwise, no acute cardiopulmonary abnormalities identified. Tyler Cleary MD Carotid Artery Ultrasound 08/09/17 0000 Signed Impressions: Service Date/Time: Wednesday, August 09, 2017 21:54 - CONCLUSION: Mild calcific plaquing with no significant stenosis. Brice Jay MD Objective Remarks GENERAL: Obese, female lying in bed SKIN: No rashes, ecchymoses or lesions. Cool and dry. CARDIOVASCULAR: Regular rate and rhythm without murmurs, gallops, or rubs. RESPIRATORY: Clear to auscultation. Breath sounds equal bilaterally. No wheezes , rales, or rhonchi. GASTROINTESTINAL: Abdomen soft, non-tender, nondistended. No guarding. MUSCULOSKELETAL: 2+ edema bilaterally which is improving. No calf tenderness. NEUROLOGICAL: Awake and alert. Cranial nerves II through XII intact. Motor and sensory grossly within normal limits. Five out of 5 muscle strength in all muscle groups. Normal speech. Procedures none A/P Problem List: (1) Visual changes ICD Code: H53.9 - Unspecified visual disturbance Status: Acute (2) [place] ICD Code: H53.419 - Scotoma involving central area, unspecified eye Status: Acute (3) COPD (chronic obstructive pulmonary disease) ICD Code: J44.9 - Chronic obstructive pulmonary disease, unspecified Assessment and Plan 1. Concern for TIA vs sz 2/2 visual disturbances/dizziness/lightheadedness. Stroke workup is unremarkable but has abnormal EEG. Seizure precautions. May need AED. Follow-up with neurology. Telemetry shows several episodes of NSVT which could be contributing to her symptoms. We will repeat BMP and check TSH today consult cardiology will need ischemic workup. Continue aspirin and beta- yudi 2. Diabetes mellitus. Stable Sliding scale insulin Monitor blood glucose 3. CHF/hypertension/hyperlipidemia. BP elevated will increase hydralazine to 50 mg 3 times a day and continue to monitor Continue home medications 4. COPD/DENIZ Continue home medications Home CPAP Patient with hypoxia. Failed oxygen walk test 5. History of atrial fibrillation Patient currently in normal sinus rhythm, anticoagulated with aspirin Monitor 6. CLAUDE Creatinine 1.43, no baseline for comparison Likely chronic component Improving with IV fluid hydration Monitor renal function FEN Regular diet Electrolytes: Monitor and replete when necessary Discontinue IV hydration Heparin Discharge Planning PT does not recommend [facility]. Not ready for discharge because of NSVT needs workup Problem Qualifiers (1) Scotoma: Qualified Codes: H53.412 - Scotoma involving central area, left eye Otilio Irizarry MD Aug 11, 2017 13:28
[2017-08-11] MEDS: hydrALAZINE HCL 50 MG TAB PO SCH ×2 (14:40→17:57)
--- NOTE | 2017-08-11 15:41 | HHI.DCPOC ---
Discharge Care Plan Diagnosis: (1) COPD (chronic obstructive pulmonary disease) (2) Visual changes (3) [place]oma Your Health Problems Are: Difficulty with ADL Exercise Tolerance Goals to Promote Your Health * To prevent worsening of your condition and complications * To maintain your health at the optimal level Directions to Meet Your Goals Take your medications as prescribed Follow your dietary instruction Follow activity as directed Keep your appointments as scheduled Take your immunizations and boosters as scheduled If your symptoms worsen call your PCP, if no PCP go to Urgent Care Center or Emergency Room Smoking is Dangerous to Your Health. Avoid second hand smoke Call the 24-hour hour crisis hotline for domestic abuse at Otilio Irizarry MD Aug 11, 2017 15:41
--- NOTE | 2017-08-11 17:32 | ECHRPT ---
Indication: dc heart failure CONCLUSIONS The left ventricular systolic function is hyperdynamic with an estimated ejection fraction in the ra nge of 65- 70%. Mild concentric left ventricular hypertrophy. Mild mitral valve regurgitation. Trace aortic valve regurgitation. There is trace tricuspid valve regurgitation. BP: / HR: Rhythm: MEASUREMENTS (Male / Female) Normal Values Technical Quality:Fair 2D ECHO LV Diastolic Diameter PLAX 4.8 cm 4.2 - 5.9 / 3.9 - 5.3 cm LV Systolic Diameter PLAX 3.3 cm IVS Diastolic Thickness 1.3 cm 0.6 - 1.0 / 0.6 - 0.9 cm LVPW Diastolic Thickness 1.2 cm 0.6 - 1.0 / 0.6 - 0.9 cm LV Relative Wall Thickness 0.5 RV Internal Dim ED PLAX 3.5 cm LVOT Diameter 2.2 cm M-MODE Aortic Root Diameter MM 2.7 cm LA Systolic Diameter MM 4.5 cm LA Ao Ratio MM 1.7 AV Cusp Separation MM 1.8 cm DOPPLER AV Peak Velocity 233.0 cm/s AV Peak Gradient 21.7 mmHg AV Mean Gradient 11.0 mmHg AV Velocity Time Integral 54.5 cm LVOT Peak Velocity 95.5 cm/s LVOT Peak Gradient 3.6 mmHg LVOT Velocity Time Integral 22.7 cm AV Area Cont Eq vti 1.6 cm AV Area Cont Eq pk 1.6 cm Mitral E Point Velocity 97.2 cm/s Mitral A Point Velocity 77.5 cm/s Mitral E to A Ratio 1.3 LV E' Lateral Velocity 10.8 cm/s Mitral E to LV E' Lateral Ratio 9.0 LV E' Septal Velocity 10.2 cm/s Mitral E to LV E' Septal Ratio 9.5 TR Peak Velocity 233.0 cm/s TR Peak Gradient 21.7 mmHg Right Atrial Pressure 10.0 mmHg Pulmonary Artery Systolic Pressu 31.7 mmHg Right Ventricular Systolic Press 31.7 mmHg FINDINGS LEFT VENTRICLE Normal left ventricular size. The left ventricular systolic function is hyperdynamic with an estimated ejection fraction in the ra nge of 65- 70%. Mild concentric left ventricular hypertrophy. RIGHT VENTRICLE Normal right ventricular size and systolic function. LEFT ATRIUM The left atrial size is normal. RIGHT ATRIUM The right atrial size is normal. ATRIAL SEPTUM Normal atrial septal thickness without atrial level shunting by limited color doppler interrogation. AORTA The aortic root and proximal ascending aorta are normal in size on limited imaging. MITRAL VALVE Structurally normal mitral valve. Mild mitral valve regurgitation. No mitral valve stenosis. AORTIC VALVE Trileaflet aortic valve. Trace aortic valve regurgitation. No aortic valve stenosis. . TRICUSPID VALVE Structurally normal tricuspid valve. There is trace tricuspid valve regurgitation. The estimated pulmonary arterial pressure is 31.7 mmHg. PULMONARY VALVE No pulmonary valve regurgitation or stenosis. VESSELS The inferior vena cava is normal in size. PERICARDIUM No pericardial effusion. Misha Loza DO (Electronically Signed) Final Date:11 August 2017 17:31
--- NOTE | 2017-08-11 22:12 | MB ---
cc: MISHA LOJA DO DATE OF CONSULTATION: 08/11/2017 REASON FOR CONSULTATION: Possible arrhythmia on telemetry. HISTORY OF PRESENT ILLNESS Albina Turner is a pleasant 72-year-old female who presented to [facility] emergency room on August 09, 2017 due to episodes of lightheadedness and dizziness. Apparently the patient will have these episodes and feel a feeling come over her and feel lightheaded and feel like she is seeing stars. She states that she can have multiple episodes throughout the day or some days not have any and all. She denies chest pain or palpitations during this. While being worked up by neurology and the primary care team here, she had possible arrhythmia noted on telemetry and I was consulted for such. PAST MEDICAL HISTORY 1. Atrial fibrillation 2. Diabetes mellitus. 3. Hypertension. 4. Hyperlipidemia 5. Congestive heart failure. 6. Obstructive sleep apnea. 7. COPD. PAST SURGICAL HISTORY Appendectomy. ALLERGIES HYDROCODONE. MEDICATIONS 1. Pravastatin 20 mg daily. 2. Hydralazine 25 mg t.i.d. 3. Coreg 3.125 mg b.i.d. 4. Norvasc 5 mg daily. 5. Valsartan 160 mg daily. 6. Aspirin 81 mg daily. 7. Xanax 0.5 mg every 8 hours as needed for anxiety, 0.25 mg every night as needed for anxiety. 8. Buspirone 7.5 mg b.i.d. 9. Torsemide 20 mg daily. 10. Breo Ellipta one puff daily. 11. Omeprazole 20 mg daily. 12. Metformin 1000 mg b.i.d. 13. Glimepiride 4 mg b.i.d. 14. Pioglitazone 30 mg daily. 15. Allopurinol 300 mg daily. FAMILY HISTORY Denies premature coronary artery disease or sudden cardiac within the family. SOCIAL HISTORY The patient denies current tobacco, alcohol or drug abuse. REVIEW OF SYSTEMS 14-systems were reviewed including osteopathic pertinent positives and negatives above otherwise negative. PHYSICAL EXAMINATION Vital signs: Temperature 98.0, heart rate 62, blood pressure 146/66, respirations 19, pulse ox 97% on 1 liter. In general the patient appears well in no acute distress, alert awake and oriented x3. HEENT: Extraocular muscles intact. Mucous membranes moist. Neck: Supple. No JVD at 45 degrees. No carotid bruits heard bilaterally. Carotid upstroke is brisk in nature. Heart: Heart is regular rate and rhythm. Positive first and second heart sounds with no murmurs, gallops or rubs. Lungs: Clear to auscultation bilaterally. No wheezes, rales or rhonchi. Abdomen: Soft, nontender, nondistended. No organomegaly. Extremities: Show no clubbing, cyanosis or edema. Femoral and distal pulses intact bilaterally. Neurologically: No focal deficits. Skin: Warm, dry and intact. Osteopathically, with no kyphoscoliosis, lordosis or paraspinal tender points. LABORATORY WORK: Hemoglobin 12.3, hematocrit 37.5, platelets 243. Potassium 4.1, BUN 19, creatinine 0.96, troponin less than 0.02. Electrocardiogram (August 09, 2017) sinus rhythm, nonspecific ST-T wave changes. IMPRESSION 1. Possible arrhythmia on telemetry which appears to be artifact. 2. History of atrial fibrillation with a CHADs vas score of five currently on aspirin for anticoagulation. 3. Dizzy spells of unknown cause. 4. Diabetes mellitus. 5. Hypertension. 6. Hyperlipidemia. 7. CHF of unknown type. 8. Obstructive sleep apnea. 9. COPD. RECOMMENDATIONS 1. Ms. Turner appears to have artifact on her telemetry which was felt to be ventricular tachycardia. In viewing her monitor technician strips throughout her past 24 hours there appears that this is all artifact and there are no wide complex tachycardia. 2. She has a history of atrial fibrillation with a CHADs vas score of five (congestive heart failure, hypertension, age, diabetes, gender). I spoke with her the consideration of anticoagulation and she wants to stay on aspirin. Overall until these dizzy episodes are further determined I think this is reasonable as there is a concern for falls. 3. For further dizzy episodes she can follow up for consideration of long-term rhythm analysis with either an event monitor or loop recorder. While here no arrhythmias have been noticed on telemetry. She does state that occasionally she does get palpitations with the episodes but has not had that while in the hospital. 4. Further recommendations will be made based on the hospital course. Thank you for allowing me to see Albina Turner. If there are any questions please do not hesitate to call. Misha LYON/EBONY /9:30 PM /9:48 PM
[2017-08-11] MEDS: ALPRAZolam 0.25 MG TAB PO PRN (22:39)
[2017-08-12] VITALS (11 sets, daily range): BP systolic 130–170; BP diastolic 67–72; PULSE 57–97; RESP 18–20; TEMP 97.6–98; O2SAT 94–96
[2017-08-12] MEDS: HEPARIN SODIUM - SQ 10,000 UNITS/ML VIAL SQ SCH ×2 (06:39→12:51)
[2017-08-12] MEDS: PANTOPRAZOLE SOD 20 MG DELAYED RELEASE TAB PO SCH (09:18)
[2017-08-12] MEDS: PRAVASTATIN SOD 20 MG TAB PO SCH (09:18)
[2017-08-12] MEDS: CARVEDILOL 3.125 MG TAB PO SCH (09:18)
[2017-08-12] MEDS: ASPIRIN 325 MG TAB PO SCH (09:18)
[2017-08-12] MEDS: busPIRone HCL 5 MG TAB PO SCH (09:18)
[2017-08-12] MEDS: hydrALAZINE HCL 50 MG TAB PO SCH (09:18)
[2017-08-12] MEDS: amLODIPine BESYLATE 5 MG TAB PO SCH (09:19)
[2017-08-12] MEDS: FLUTICASONE 100 MCG/VILANTEROL 25 MCG INHALER INH SCH (09:19)
[2017-08-12] MEDS: TORSEMIDE 20 MG TAB PO SCH (09:19)
[2017-08-12] MEDS: VALSARTAN 160 MG TAB PO SCH (09:19)
[2017-08-12] MEDS: SODIUM CHLORIDE 0.9% FLUSH 10 ML FLUSH IV FLUSH SCH (09:19)
[2017-08-12] MEDS: ALLOPURINOL 300 MG TAB PO SCH (09:26)
[2017-08-12] MEDS: INSULIN ASPART SUPPLEMENTAL SCALE SQ SCH ×3 (09:27→16:23)
[2017-08-12 09:50] LABS: BICARBONATE 27.8 MEQ/L (21.0-32.0); CALCIUM 9.9 MG/DL (8.5-10.1); CREATININE 0.85 MG/DL (0.50-1.00); MAGNESIUM 2.2 MG/DL (1.5-2.5)
--- NOTE | 2017-08-12 11:06 | HHI.PR ---
Subjective Remarks F/U Dizziness. No more dizziness but really anxious thinking she might have a brain tumor. She was really emotional. Spent significant time counseling patient. Told her her main issue is anxiety which is driving her blood pressure up. Discussed with family, recommended outpatient follow-up with psychology and to be engaged in meaningful activities like volunteering in the hospital. Discussed with neurology, no medications recommended with outpatient follow-up in 2 weeks. Objective Vitals Vital Signs Date Time Temp Pulse Resp B/P (MAP) Pulse Ox O2 Delivery O2 Flow Rate FiO2 08/12/17 07:53 97.6 64 20 170/72 (104) 95 08/12/17 04:00 97.6 57 20 159/70 (99) 94 08/12/17 03:55 67 08/12/17 00:19 73 08/12/17 00:00 97.7 71 18 146/68 (94) 96 08/11/17 20:47 Nasal Cannula 2.00 08/11/17 20:27 98.1 79 16 154/70 (98) 94 08/11/17 16:30 71 08/11/17 16:00 97.7 68 18 166/70 (102) 97 08/11/17 12:00 98.2 65 17 146/64 (91) 98 I/O 08/11/17 08/11/17 08/11/17 08/12/17 08/12/17 08/12/17 07:00 15:00 23:00 07:00 15:00 23:00 Intake Total 1200 ml 720 ml Balance 1200 ml 720 ml Intake Oral 1200 ml 720 ml # Voids 3 1 9 1 # Bowel Movements 0 2 0 Result Diagram: 08/10/17 0854 08/12/17 0752 Imaging Last Impressions Neck Magnetic Resonance Angiography 08/10/17 0000 Signed Impressions: Service Date/Time: Thursday, August 10, 2017 11:13 - CONCLUSION: 1. Mild eccentric plaque at the right carotid bifurcation without significant stenosis. Left carotid system unremarkable. Vertebral arteries are patent bilaterally. Bjorn Carballo MD Head Magnetic Resonance Angiography 08/10/17 0000 Signed Impressions: Service Date/Time: Thursday, August 10, 2017 11:13 - CONCLUSION: Normal examination. Stef Hines Jr., MD Brain MRI 08/10/17 0000 Signed Impressions: Service Date/Time: Thursday, August 10, 2017 11:13 - CONCLUSION: 1. No acute intracranial abnormality. 2. Atrophy and chronic small vessel ischemic change. Stef Hines Jr., MD Head CT [id number] Signed Impressions: Service Date/Time: Wednesday, August 09, 2017 19:01 - CONCLUSION: 1. No acute intracranial abnormality is identified. 2. Chronic and age-appropriate findings include mild generalized atrophy and mild chronic periventricular white matter changes. Tyler Cleary MD Chest X-Ray [id number] Signed Impressions: Service Date/Time: Wednesday, August 09, 2017 18:54 - CONCLUSION: Underinflation with atelectasis at the left lung base. Otherwise, no acute cardiopulmonary abnormalities identified. Tyler Cleary MD Carotid Artery Ultrasound 08/09/17 0000 Signed Impressions: Service Date/Time: Wednesday, August 09, 2017 21:54 - CONCLUSION: Mild calcific plaquing with no significant stenosis. Brice Jay MD Objective Remarks GENERAL: Obese, female lying in bed SKIN: No rashes, ecchymoses or lesions. Cool and dry. CARDIOVASCULAR: Regular rate and rhythm without murmurs, gallops, or rubs. RESPIRATORY: Clear to auscultation. Breath sounds equal bilaterally. No wheezes , rales, or rhonchi. GASTROINTESTINAL: Abdomen soft, non-tender, nondistended. No guarding. MUSCULOSKELETAL: 2+ edema bilaterally which is improving. No calf tenderness. NEUROLOGICAL: Awake and alert. Cranial nerves II through XII intact. Motor and sensory grossly within normal limits. Five out of 5 muscle strength in all muscle groups. Normal speech. Procedures none A/P Problem List: (1) Visual changes ICD Code: H53.9 - Unspecified visual disturbance Status: Acute (2) Scotoma ICD Code: H53.419 - Scotoma involving central area, unspecified eye Status: Acute (3) COPD (chronic obstructive pulmonary disease) ICD Code: J44.9 - Chronic obstructive pulmonary disease, unspecified Assessment and Plan 1. Concern for TIA vs sz 2/2 visual disturbances/dizziness/lightheadedness. Stroke workup is unremarkable but has abnormal EEG. Seizure precautions. Discussed with neurology, no medications recommended. Telemetry shows several episodes of NSVT which according to cardiology is artifact. If she continues to have palpitations he may have event monitor or loop recorder. I told patient that her symptoms are likely related to anxiety. Will increase BuSpar and recommended outpatient follow-up with psychology for counseling. Continue Xanax but to minimize use secondary to addicting potential 2. Diabetes mellitus. Stable Sliding scale insulin Monitor blood glucose 3. CHF/hypertension/hyperlipidemia. BP elevated will increase hydralazine to 75 mg 3 times a day and continue to monitor Continue home medications 4. COPD/DENIZ Continue home medications Home CPAP Patient with hypoxia. Failed oxygen walk test 5. History of atrial fibrillation Patient currently in normal sinus rhythm, anticoagulated with aspirin. Does not want to be on anticoagulation Monitor 6. CLAUDE Creatinine 1.43, no baseline for comparison Likely chronic component Improving with IV fluid hydration Monitor renal function FEN Regular diet Electrolytes: Monitor and replete when necessary Discontinue IV hydration Heparin Discharge Planning PT does not recommend HHC. Stable for discharge Problem Qualifiers (1) Scotoma: Qualified Codes: H53.412 - Scotoma involving central area, left eye Otilio Irizarry MD Aug 12, 2017 11:06
[2017-08-12] MEDS: hydrALAZINE HCL 25 MG TAB PO SCH ×2 (12:48→16:22)
[2017-08-12] MEDS ORDERED: POTASSIUM CHLORIDE 20 MEQ CONTROLLED RELEASE TAB PO ONE (13:45)
[2017-08-12] MEDS ORDERED: BUSP5TAB PO (13:50)
[2017-08-12] MEDS ORDERED: HYDR-3799 PO (13:50)
--- NOTE | 2017-08-12 14:15 | HHI.DS ---
Discharge Summary Admission Date Aug 09, 2017 at 21:40 Discharge Date: Aug 12, 2017 Admitting Diagnosis Scotoma, dizzy, BARLOW, r/o TIA/CVA (1) Visual changes ICD Code: H53.9 - Unspecified visual disturbance Diagnosis: Principal Status: Acute (2) [place] ICD Code: H53.419 - Scotoma involving central area, unspecified eye Diagnosis: Principal Status: Acute (3) COPD (chronic obstructive pulmonary disease) ICD Code: J44.9 - Chronic obstructive pulmonary disease, unspecified Diagnosis: Principal Procedures none Brief History - From Admission 72-year-old female with a past medical history significant for atrial fibrillation anticoagulated on aspirin, diabetes mellitus, hypertension, hyperlipidemia, CHF (no recent echo for comparison), DENIZ and COPD presents to the emergency department with multiple episodes of dizziness/lightheadedness. The patient reports that she has these episodes several times a week and was previously being treated for anxiety. She reports that she feels lightheaded and has heart palpitations with accompanying visual disturbances. She reports the disturbances are floaters in her left eye. She denies any loss of vision. CBC/BMP: 08/10/17 0854 08/12/17 0752 Significant Findings Laboratory Tests Test 08/09/17 18:55 08/09/17 20:50 08/10/17 08:54 08/12/17 07:52 Monocytes (%) (Auto) 8.7 % (0.0-8.0) Blood Urea Nitrogen 25 MG/DL (7-18) 19 MG/DL (7-18) Creatinine 1.43 MG/DL (0.50-1.00) Random Glucose 208 MG/DL (74-106) 149 MG/DL (74-106) 156 MG/DL (74-106) Aspartate Amino Transf (AST/SGOT) 13 U/L (15-37) Estimat Glomerular Filtration Rate 36 ML/MIN (>89) 57 ML/MIN (>89) 65 ML/MIN (>89) Troponin I LESS THAN 0.02 NG/ML Urine Protein 30 mg/dL (NEG-TRACE) Urine Leukocyte Esterase TRACE (NEG) Urine Bacteria RARE /hpf (NONE) Urine Mucus FEW /lpf (OCC) Neutrophils (%) (Auto) 70.7 % (16.0-70.0) Hemoglobin A1c 6.2 % (4.3-6.0) Triglycerides Level 187 MG/DL (42-150) Potassium Level 3.3 MEQ/L (3.5-5.1) Imaging Last Impressions Neck Magnetic Resonance Angiography 08/10/17 0000 Signed Impressions: Service Date/Time: Thursday, August 10, 2017 11:13 - CONCLUSION: 1. Mild eccentric plaque at the right carotid bifurcation without significant stenosis. Left carotid system unremarkable. Vertebral arteries are patent bilaterally. Bjorn Carballo MD Head Magnetic Resonance Angiography 08/10/17 0000 Signed Impressions: Service Date/Time: Thursday, August 10, 2017 11:13 - CONCLUSION: Normal examination. Stef Hines Jr., MD Brain MRI 08/10/17 0000 Signed Impressions: Service Date/Time: Thursday, August 10, 2017 11:13 - CONCLUSION: 1. No acute intracranial abnormality. 2. Atrophy and chronic small vessel ischemic change. Stef Hines Jr., MD Head CT [id number] Signed Impressions: Service Date/Time: Wednesday, August 09, 2017 19:01 - CONCLUSION: 1. No acute intracranial abnormality is identified. 2. Chronic and age-appropriate findings include mild generalized atrophy and mild chronic periventricular white matter changes. Tyler Cleary MD Chest X-Ray [id number] Signed Impressions: Service Date/Time: Wednesday, August 09, 2017 18:54 - CONCLUSION: Underinflation with atelectasis at the left lung base. Otherwise, no acute cardiopulmonary abnormalities identified. Tyler Cleary MD Carotid Artery Ultrasound 08/09/17 0000 Signed Impressions: Service Date/Time: Wednesday, August 09, 2017 21:54 - CONCLUSION: Mild calcific plaquing with no significant stenosis. Brice Jay MD PE at Discharge GENERAL: Obese, female lying in bed SKIN: No rashes, ecchymoses or lesions. Cool and dry. CARDIOVASCULAR: Regular rate and rhythm without murmurs, gallops, or rubs. RESPIRATORY: Clear to auscultation. Breath sounds equal bilaterally. No wheezes , rales, or rhonchi. GASTROINTESTINAL: Abdomen soft, non-tender, nondistended. No guarding. MUSCULOSKELETAL: 2+ edema bilaterally which is improving. No calf tenderness. NEUROLOGICAL: Awake and alert. Cranial nerves II through XII intact. Motor and sensory grossly within normal limits. Five out of 5 muscle strength in all muscle groups. Normal speech. Hospital Course 1. Concern for TIA vs sz 2/2 visual disturbances/dizziness/lightheadedness. Stroke workup is unremarkable but has abnormal EEG. Seizure precautions. Discussed with neurology, no medications recommended. Telemetry shows several episodes of NSVT which according to cardiology is artifact. If she continues to have palpitations she may have event monitor or loop recorder. I told patient that her symptoms are likely related to anxiety. Will increase BuSpar and recommended outpatient follow-up with psychology for counseling. Continue Xanax but to minimize use secondary to addicting potential 2. Diabetes mellitus. Stable Sliding scale insulin Monitor blood glucose 3. CHF/hypertension/hyperlipidemia. BP elevated will increase hydralazine to 75 mg 3 times a day and continue to monitor Continue home medications 4. COPD/DENIZ Continue home medications Home CPAP Patient with hypoxia. Failed oxygen walk test 5. History of atrial fibrillation Patient currently in normal sinus rhythm, anticoagulated with aspirin. Does not want to be on anticoagulation Monitor 6. CLAUDE Creatinine 1.43, no baseline for comparison Likely chronic component Improving with IV fluid hydration Monitor renal function FEN Regular diet Electrolytes: Monitor and replete when necessary Discontinue IV hydration Heparin Pt Condition on Discharge: Stable Discharge Disposition: Discharge Home Discharge Time: > 30 minutes Discharge Instructions DIET: Follow Instructions for: Heart Healthy Diet, Diabetic Diet Activities you can perform: Regular-No Restrictions Activities to Avoid: Driving Follow up Referrals: Appointment for Follow Up - 1 Week @ Psychologist Neurology - 2 Weeks Ophthalmology - 1 Week PCP Follow-up - 2-3 Days New Medications: Oxygen (O2) (Oxygen (O2)) Device LITER EBONY.CANULA CONTINUOUS for Prevent Hypoxemia, #2 Oxygen Concentrator Portable Gaseous 2 L/min via Nasal Canula Continuous For 99 months Buspirone (Buspirone) 5 Mg Tab 15 MG PO BID for Control Anxiety, #180 TAB Hydralazine HCl (Hydralazine HCl) 25 Mg Tablet 75 MG PO TID for Blood Pressure Management, #90 TAB Continued Medications: Allopurinol (Allopurinol) 300 Mg Tab 300 MG PO DAILY for Gout, #30 TAB 0 Refills Alprazolam (Xanax) 0.5 Mg Tab 0.5 MG PO Q8H PRN for ANXIETY, TAB 0 Refills Alprazolam (Xanax) 0.25 Mg Tab 0.25 MG PO HS PRN for ANXIETY, TAB 0 Refills Amlodipine (Amlodipine) 5 Mg Tab 5 MG PO DAILY for Blood Pressure Management, #30 TAB [address] (Aspirin 81) 81 Mg Tabdr 81 MG PO DAILY, TAB 0 Refills Carvedilol (Carvedilol) 3.125 Mg Tab 3.125 MG PO BID, #60 TAB 0 Refills Cholecalciferol (Vitamin D3) 5,000 Unit Cap 5000 UNITS PO DAILY for Nutritional Supplement, #30 CAP 0 Refills Clobetasol Topical (Clobetasol Topical) 0.05% Cream 1 APPLIC TOPICAL BID, #15 GM 0 Refills Cyanocobalamin (Vitamin B-12) 1,000 Mcg Tab 1000 MCG PO DAILY for Nutritional Supplement, #1 BOTTLE 0 Refills Fluticasone-Vilanterol Inh (Breo Ellipta Inh) 100-25 Mcg/Act Inh 1 PUFF INH DAILY, #1 INHALER 0 Refills Use daily at the same time. Glimepiride (Glimepiride) 4 Mg Tab 4 MG PO BIDAC for Blood Sugar Management, #60 TAB 0 Refills Metformin (Metformin) 1,000 Mg Tab 1000 MG PO BIDPC for Blood Sugar Management, #60 TAB 0 Refills Omeprazole (Omeprazole) 20 Mg Tab 20 MG PO DAILY, #30 TAB 0 Refills Pioglitazone (Pioglitazone) 30 Mg Tab 30 MG PO DAILY for Blood Sugar Management, #30 TAB 0 Refills Pravastatin (Pravastatin) 20 Mg Tab 20 MG PO DAILY for Cholesterol Management, #30 TAB 0 Refills Torsemide (Torsemide) 20 Mg Tab 20 MG PO DAILY, #30 TAB 0 Refills Valsartan (Valsartan) 160 Mg Tab 160 MG PO DAILY, #30 TAB 0 Refills Discontinued Medications: Buspirone (Buspirone) 7.5 Mg Tab 7.5 MG PO BID for Anxiety, TAB 0 Refills Hydralazine HCl (Hydralazine HCl) 25 Mg Tablet 25 MG PO TID for Blood Pressure Management, #90 TAB 0 Refills Otilio Irizarry MD Aug 12, 2017 14:15
--- NOTE | 2017-08-12 18:20 | PD.CARD.PN ---
Subjective Subjective Remarks Patient was seen earlier today, late entry note No chest pain/SOB No further dizzy episodes No arrhythmias noted on telemetry Objective Medications Current Medications Clonidine (Catapres) 0.2 mg ONCE ONCE PO ; Start 08/09/17 at 18:45; Stop at 19:52; Status DC Clonidine (Catapres) 0.1 mg ONCE ONCE PO Last administered on 08/09/17at 20:06 ; Start 08/09/17 at 20:00; Stop 08/09/17 at 20:01; Status DC Sodium Chloride (NS Flush) 2 ml BID IV FLUSH Last administered on 08/12/17at 09: 19; Start 08/10/17 at 09:00; Stop 08/12/17 at 17:44; Status DC Sodium Chloride (NS Flush) 2 ml UNSCH PRN IV FLUSH FLUSH AFTER USING IV ACCESS ; Start 08/09/17 at 21:30; Stop 08/12/17 at 17:44; Status DC Aspirin (Aspirin) 325 mg DAILY PO Last administered on 08/12/17at 09:18; Start 08/10/17 at 09:00; Stop 08/12/17 at 17:44; Status DC Insulin Aspart (NovoLOG SUPPLEMENTAL SCALE) 1 ACHS SQ Last administered on 08/12at 09:27; Start 08/10/17 at 08:00; Stop 08/12/17 at 17:44; Status DC Dextrose (D50w (Vial) Inj) 50 ml UNSCH PRN IV PUSH HYPOGLYCEMIA-SEE COMMENTS; Start 08/09/17 at 21:30; Stop 08/12/17 at 17:44; Status DC Glucagon (Glucagon Inj) 1 mg UNSCH PRN OTHER HYPOGLYCEMIA-SEE COMMENTS; Start 08/09/17 at 21:30; Stop 08/12/17 at 17:44; Status DC Heparin Sodium (Porcine) (Heparin Inj) 5,000 units Q8HR SQ Last administered on 08/12/17at 12:51; Start 08/09/17 at 22:00; Stop 08/12/17 at 17:44; Status DC Sodium Chloride 1,000 ml @ 70 mls/hr [id number] IV Last administered on at 22:32; Start 08/09/17 at 21:30; Stop 08/11/17 at 11:24; Status DC Alprazolam (Xanax) 0.5 mg Q8HR PRN PO ANXIETY; Start 08/09/17 at 22:00; Stop at 10:36; Status DC Amlodipine Besylate (Norvasc) 5 mg DAILY PO Last administered on 08/12/17at 09: 19; Start 08/10/17 at 09:00; Stop 08/12/17 at 17:44; Status DC Buspirone HCl (Buspar) 7.5 mg BID PO Last administered on 08/12/17at 09:18; Start 08/10/17 at 09:00; Stop 08/12/17 at 10:42; Status DC Carvedilol (Coreg) 3.125 mg BID PO Last administered on 08/12/17at 09:18; Start 08/10/17 at 09:00; Stop 08/12/17 at 17:44; Status DC Fluticasone/ Vilanterol (Breo Ellipta 100-25 Inh) 1 puff DAILY INH Last administered on 08/12/17at 09:19; Start 08/10/17 at 09:00; Stop 08/12/17 at 17:44 ; Status DC Hydralazine HCl (Apresoline) 25 mg TID PO Last administered on 08/11/17at 08:56 ; Start 08/10/17 at 09:00; Stop 08/11/17 at 09:46; Status DC Pravastatin Sodium (Pravachol) 20 mg DAILY PO Last administered on 08/12/17at 09 :18; Start 08/10/17 at 09:00; Stop 08/12/17 at 17:44; Status DC Torsemide (Demadex) 20 mg DAILY PO Last administered on 08/12/17at 09:19; Start 08/10/17 at 09:00; Stop 08/12/17 at 17:44; Status DC Valsartan (Diovan) 160 mg DAILY PO Last administered on 08/12/17at 09:19; Start 08/10/17 at 09:00; Stop 08/12/17 at 17:44; Status DC Pantoprazole Sodium (Protonix) 20 mg DAILY PO Last administered on 08/12/17at 09 :18; Start 08/10/17 at 09:00; Stop 08/12/17 at 17:44; Status DC Miscellaneous (Pill Splitter) 1 ea UNSCH PRN OTHER SEE LABEL COMMENTS; Start at 21:30; Stop 08/12/17 at 17:44; Status DC Pneumococcal Polyvalent Vaccine (Pneumovax-23 Inj) 25 mcg ONCE ONCE IM ; Start 08/10/17 at 10:00; Stop 08/10/17 at 12:29; Status DC Gadobenate Dimeglumine (Multihance Pf Inj) 20 ml STK-MED ONCE IV Last administered on 08/10/17at 12:24; Start 08/10/17 at 12:24; Stop 08/10/17 at 12:25 ; Status DC Alprazolam (Xanax) 0.25 mg HS PRN PO insomnia Last administered on 08/11/17at 22 :39; Start 08/10/17 at 17:30; Stop 08/12/17 at 17:44; Status DC Hydralazine HCl (Apresoline) 50 mg TID PO Last administered on 08/12/17at 09:18 ; Start 08/11/17 at 13:00; Stop 08/12/17 at 10:42; Status DC Hydralazine HCl (Apresoline) 25 mg ONCE ONCE PO Last administered on at 10:51; Start 08/11/17 at 09:45; Stop 08/11/17 at 10:35; Status DC Allopurinol (Zyloprim) 300 mg DAILY PO Last administered on 08/12/17at 09:26; Start 08/11/17 at 10:30; Stop 08/12/17 at 17:44; Status DC Buspirone HCl (Buspar) 15 mg BID PO ; Start 08/12/17 at 21:00; Stop 08/12/17 at 21:00; Status DC Hydralazine HCl (Apresoline) 75 mg TID PO Last administered on 08/12/17at 16:22 ; Start 08/12/17 at 13:00; Stop 08/12/17 at 17:44; Status DC Potassium Chloride (KCl) 40 meq ONCE ONCE PO Last administered on 08/12/17at 16 :23; Start 08/12/17 at 13:45; Stop 08/12/17 at 13:46; Status DC Vital Signs / I&O Vital Signs Date Time Temp Pulse Resp B/P (MAP) Pulse Ox O2 Delivery O2 Flow Rate FiO2 08/12/17 17:46 95 Nasal Cannula 2.00 08/12/17 15:26 98.0 69 20 148/67 (94) 95 08/12/17 11:56 98.0 67 20 130/72 (91) 95 08/12/17 08:00 Room Air 08/12/17 07:53 97.6 64 20 170/72 (104) 95 08/12/17 04:00 97.6 57 20 159/70 (99) 94 08/12/17 03:55 67 08/12/17 00:19 73 08/12/17 00:00 97.7 71 18 146/68 (94) 96 08/11/17 20:47 Nasal Cannula 2.00 08/11/17 20:27 98.1 79 16 154/70 (98) 94 I/O 08/11/17 08/11/17 08/11/17 08/12/17 08/12/17 08/12/17 07:00 15:00 23:00 07:00 15:00 23:00 Intake Total 1200 ml 720 ml Balance 1200 ml 720 ml Intake Oral 1200 ml 720 ml # Voids 3 1 9 1 # Bowel Movements 0 2 0 Physical Exam GENERAL: NAD, AAOx3 SKIN: Warm and dry. HEAD: Atraumatic. Normocephalic. EYES: Pupils equal and round. No scleral icterus. No injection or drainage. ENT: No nasal bleeding or discharge. Mucous membranes pink and moist. NECK: Trachea midline. No JVD. CARDIOVASCULAR: Regular rate and rhythm. RESPIRATORY: No accessory muscle use. Clear to auscultation. Breath sounds equal bilaterally. GASTROINTESTINAL: Abdomen soft, non-tender, nondistended. Hepatic and splenic margins not palpable. MUSCULOSKELETAL: Extremities without clubbing, cyanosis, or edema. No obvious deformities. NEUROLOGICAL: Awake and alert. No obvious cranial nerve deficits. Motor grossly within normal limits. Five out of 5 muscle strength in the arms and legs. Normal speech. PSYCHIATRIC: Appropriate mood and affect; insight and judgment normal. Laboratory Laboratory Tests Test 08/12/17 07:52 Blood Urea Nitrogen 17 MG/DL Creatinine 0.85 MG/DL Random Glucose 156 MG/DL Calcium Level 9.9 MG/DL Magnesium Level 2.2 MG/DL Sodium Level 140 MEQ/L Potassium Level 3.3 MEQ/L Chloride Level 104 MEQ/L Carbon Dioxide Level 27.8 MEQ/L Anion Gap 8 MEQ/L Estimat Glomerular Filtration Rate 65 ML/MIN Thyroid Stimulating Hormone 3rd Gen 1.900 uIU/ML Assessment and Plan Problem List: (1) COPD (chronic obstructive pulmonary disease) ICD Codes: J44.9 - Chronic obstructive pulmonary disease, unspecified (2) Dizziness ICD Codes: R42 - Dizziness and giddiness (3) Afib ICD Codes: I48.91 - Unspecified atrial fibrillation Assessment and Plan 1) Telemetry reviewed, no episodes of arrhythmias, all artifact 2) Questionable history of Afib Discussed with the patient, she's unsure where this came from but will discuss with her PCP about it and let me know in the outpatient setting CHADSVASc = 5 Discussed about anti-coagulation, but since she's unsure of the diagnosis, wants to stay on ASA 81mg daily for now 3) Cardiovascularly stable for discharge 4) Plan for follow up outpatient to readdress AFib and dizzy episodes Consideration of 30 day event monitor to look for Afib and with symptoms of palpitations/dizzy Misha Loza DO Aug 12, 2017 18:20
[2017-08-12] MEDS ORDERED: busPIRone HCL 5 MG TAB PO SCH (21:00)
== END 2017-08-12 17:42 | disposition home or self-care (01) | DRG 880 ==
LOC: NEPC 18:12 → NEDA 20:38 → INTOOBSV 20:38 → OBSVTOIN 21:40 → N05B 22:55
PROVIDERS: ADMIT Internal Medicine; ATTEND Internal Medicine
DX: F41.9 Anxiety disorder, unspecified (principal); N17.9 Acute kidney failure, unspecified; I50.9 Heart failure, unspecified; I48.91 Unspecified atrial fibrillation; I11.0 Hypertensive heart disease with heart failure; Z68.41 Body mass index [BMI] 40.0-44.9, adult; H53.412 Scotoma involving central area, left eye; E66.9 Obesity, unspecified; E11.9 Type 2 diabetes mellitus without complications; E78.5 Hyperlipidemia, unspecified; R42 Dizziness and giddiness; G47.33 Obstructive sleep apnea (adult) (pediatric); J44.9 Chronic obstructive pulmonary disease, unspecified; H53.9 Unspecified visual disturbance; R09.02 Hypoxemia; R00.2 Palpitations; I25.10 Atherosclerotic heart disease of native coronary artery without angina pectoris; R94.01 Abnormal electroencephalogram [EEG]; Z79.82 Long term (current) use of aspirin; Z79.84 Long term (current) use of oral hypoglycemic drugs
CPT/HCPCS: 70450; 70544; 70548; 70551; 71045; 80048; 80053; 80061; 81001; 82948; 83036; 83735; 84443; 84484; 85025; 85610; 85730; 87086; 93005; 93306; 93880; 94618; 95819; 99285; A9577; J1644; J1815; J7030